=== PATIENT | female | born 2005 | race Caucasian/White ===

== ENCOUNTER 2024-04-18 14:08 | Emergency (ER) | payer OTHER ==
[~2024-04-18] VITALS: Ht 167.6 cm; Wt 107.0 kg
[2024-04-18 14:40] VITALS: TEMP 37.3
[2024-04-18] MEDS: IPRATROPIUM/ALBUTEROL 0.5-3(2.5)MG/3ML NEB HHN ONE ×2 (16:36→18:13)
[2024-04-18 16:37] VITALS: PULSE 100; RESP 18; O2SAT 95
[2024-04-18 17:08] VITALS: TEMP 99.1
[2024-04-18] MEDS: ACETAMINOPHEN 325MG TABLET PO ONE (17:08)
[2024-04-18] MEDS: ONDANSETRON 4MG ODT PO ONE (17:09)
[2024-04-18 18:17] VITALS: PULSE 80; RESP 17; O2SAT 96
[2024-04-18] MEDS ORDERED: ACET-2708 MT (18:40)
[2024-04-18] MEDS ORDERED: ONDA-239 PO (18:40)
[2024-04-18 19:48] VITALS: BP 112/70; PULSE 105; RESP 17; O2SAT 97
== END 2024-04-18 19:49 | disposition home or self-care (01) ==
LOC: ER 14:08
DX: J10.1 Influenza due to other identified influenza virus with other respiratory manifestations (principal); J45.909 Unspecified asthma, uncomplicated; Z98.890 Other specified postprocedural states; Z20.822 Contact with and (suspected) exposure to COVID-19
CPT/HCPCS: 87804 ×2; 94640; 94070; 99284; 87426; Q0162; Z7610 ×3; 94664